=== PATIENT | female | born 1980 ===

== ENCOUNTER 2017-12-23 22:09 | Emergency (ER) | payer MEDICAID ==
[2017-12-23 22:09] VITALS: BMI 49.6
[2017-12-23] MEDS ORDERED: Sodium Chloride 0.9% 1,000 ML IV ONE (22:36)
[2017-12-23 22:58] LABS: BASO # 0.1 K/uL (0.0-0.2); BASO % 0.4 % (0.0-2.0); EOS # 0.5 K/uL (0.0-0.7); EOS % 3.9 % (0.0-4.0); HEMOGLOBIN 10.3 g/dL (11.0-16.0); LYMPH # 4.4 K/uL (1.0-4.3); LYMPH % 32.2 % (20.0-40.0); MEAN CELL VOLUME 80.3 fL (81.0-99.0); MEAN CORPUSCULAR HEMOGLOBIN 27.2 pg (27.0-31.0); MEAN CORPUSCULAR HGB CONC 33.9 g/dL (33.0-37.0); MONO % 7.1 % (0.0-10.0); NEUT # 7.7 K/uL (1.8-7.0); NEUT % 56.4 % (50.0-75.0); RBC 3.78 Mil/uL (3.80-5.20); RED CELL DISTRIBUTION WIDTH 16.4 % (11.5-14.5); WHITE BLOOD COUNT 13.6 K/uL (4.8-10.8)
[2017-12-23] MEDS ORDERED: Sodium Chloride 0.9% 1,000 ML ONE (23:03)
[2017-12-23 23:09] LABS: ALB/GLOB RATIO 1.4 (1.0-2.1); ALT/SGPT 31 U/L (9-52); AST/SGOT 19 U/L (14-36); BLOOD UREA NITROGEN 8 mg/dL (7-17); CALCIUM 9.5 mg/dl (8.6-10.4); GFR NON-AFRICAN AMERICAN > 60; INR 1.1; LIPASE 106 U/L (23-300); PROTHROMBIN TIME 11.7 SECONDS (9.7-12.2)
[2017-12-23 23:19] LABS: SQUAMOUS EPITHIAL 5 /hpf (0-5); URINE AMORPHOUS SEDIMENT OCC /ul (<OCC); URINE BACTERIA OCC (<OCC); URINE BILIRUBIN NEGATIVE (NEGATIVE); URINE BLOOD 3+ (NEGATIVE); URINE CLARITY Hazy (Clear); URINE COLOR Yellow (YELLOW); URINE GLUCOSE (UA) NORMAL (Normal); URINE LEUKOCYTE ESTERASE TRACE Leu/uL (Negative); URINE PROTEIN 1+ mg/dL (NEGATIVE)
[2017-12-23] MEDS ORDERED: Iodixanol 320 MG/ML 100 ML BOTTLE IV ONE (23:21)
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
[2017-12-24] MEDS ORDERED: Morphine 4 MG/ML VIAL ONE (00:39)
[2017-12-24 00:46] VITALS: O2SAT 97
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
[2017-12-24 02:55] VITALS: BP 120/72; PULSE 82; RESP 20; TEMP 98
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
== END 2017-12-24 02:56 | disposition home or self-care (01) ==
LOC: C.ER 22:09
DX: R10.30 Lower abdominal pain, unspecified (principal); E11.9 Type 2 diabetes mellitus without complications; Z72.0 Tobacco use
CPT/HCPCS: 74177; 80053; 81001; 83605; 83690; 85025; 85610; 85730; 96361; 96374; 96375; 99285; J1885; J2270; J7030; Q9967